=== PATIENT | female | born 1980 | race Caucasian/White ===

== ENCOUNTER 2019-01-01 22:30 | Emergency (ER) | payer MEDICAID ==
[~2019-01-01] VITALS: Ht 157.5 cm; Wt 53.0 kg
[~2019-01-01 22:30] MED LIST: METO-292 PO; NITR100C6 PO; PREN1TAB75 PO
[2019-01-01 22:42] VITALS: BP 114/57
[2019-01-01] MEDS ORDERED: AMOX-419 PO (23:11)
== END 2019-01-01 23:28 | disposition home or self-care (01) ==
LOC: ER 22:30
DX: H72.91 Unspecified perforation of tympanic membrane, right ear (principal); Z79.899 Other long term (current) drug therapy
CPT/HCPCS: 99283

== ENCOUNTER 2019-07-01 14:19 | Emergency (ER) | payer MEDICAID ==
[~2019-07-01] VITALS: Ht 157.5 cm; Wt 56.8 kg
[2019-07-01 14:42] VITALS: BP 117/75
[2019-07-01] MEDS ORDERED: AMOX-117 PO (14:56)
[2019-07-01] MEDS ORDERED: HYDR-3965 PO (14:56)
== END 2019-07-01 15:08 | disposition home or self-care (01) ==
LOC: ER 14:19
DX: H66.92 Otitis media, unspecified, left ear (principal); Z79.899 Other long term (current) drug therapy
CPT/HCPCS: 99283

== ENCOUNTER 2019-07-02 23:53 | Emergency (ER) | payer MEDICAID ==
[~2019-07-02] VITALS: Ht 157.5 cm; Wt 56.8 kg
[~2019-07-02 23:53] MED LIST changes: +AMOX-117 PO; +HYDR-3965 PO
[2019-07-02 23:58] VITALS: BP 129/86
[2019-07-03] MEDS ORDERED: CIPR7.5D LEFT EAR (02:14)
[2019-07-03] MEDS ORDERED: CefTRIAXone 1000mg IM Kit (w/lidocaine diluent) IM ONE (02:15)
[2019-07-03] MEDS ORDERED: ketorolac trometh inj. 60 MG/2 ML VIAL IM ONE (02:15)
== END 2019-07-03 02:40 | disposition home or self-care (01) ==
LOC: ER 23:54
DX: H83.02 Labyrinthitis, left ear (principal); H60.92 Unspecified otitis externa, left ear; Z79.2 Long term (current) use of antibiotics; Z79.899 Other long term (current) drug therapy
CPT/HCPCS: 96372; 99284; J0696; J1885

== ENCOUNTER 2021-03-02 02:20 | Emergency (ER) | payer MEDICAID ==
[~2021-03-02] VITALS: Ht 157.5 cm; Wt 54.5 kg
[~2021-03-02 02:20] MED LIST changes: -AMOX-117 PO; +CIPR7.5D LEFT EAR; -HYDR-3965 PO
[2021-03-02 03:51] VITALS: BP 135/87
== END 2021-03-02 03:53 | disposition home or self-care (01) ==
LOC: ER 02:20
DX: J02.9 Acute pharyngitis, unspecified (principal); R09.89 Other specified symptoms and signs involving the circulatory and respiratory systems; R09.81 Nasal congestion; Z20.822 Contact with and (suspected) exposure to COVID-19
CPT/HCPCS: 87635; 99283; C9803

== ENCOUNTER 2024-07-08 15:37 | Emergency (ER) | payer MEDICAID ==
[~2024-07-08] VITALS: Ht 157.5 cm; Wt 58.9 kg
[2024-07-08] MEDS: LIDOcaine 1% 30ml preserv. free vial SQ STA (17:19)
[2024-07-08 17:45] VITALS: BP 126/82; PULSE 65; RESP 16; TEMP 98.2; O2SAT 99
== END 2024-07-08 17:56 | disposition home or self-care (01) ==
LOC: ER 15:38
DX: S61.012A Laceration without foreign body of left thumb without damage to nail, initial encounter (principal); X58.XXXA Exposure to other specified factors, initial encounter; Y93.89 Activity, other specified; Y92.89 Other specified places as the place of occurrence of the external cause; Y99.8 Other external cause status
CPT/HCPCS: 12001; 99282; A6258

== ENCOUNTER 2025-01-05 20:55 | Emergency (ER) | payer MEDICAID ==
[~2025-01-05] VITALS: Ht 157.5 cm; Wt 48.9 kg
[~2025-01-05 20:55] MED LIST changes: +CIPR7.5D7 OT
[2025-01-05 21:07] VITALS: BP 132/69; PULSE 90; RESP 15; TEMP 98.6; O2SAT 98
--- NOTE | 2025-01-05 21:20 | Physician Documentation ---
History of Present Illness Stated Complaint: DOG BITE Time Seen by MD: 21:13 Primary Medical Doctor: [facility] HPI Ref[age] year old female presents to the emergency department for evaluation of dog bite sustained after breaking a dog fight up between 2 dogs that she does not know. Sustained dog bites to the left index finger finger and left forearm. Bleeding is controlled. Patient reports being up-to-date on her tetanus. Medication Reconciliation Allergies: Coded Allergies: No Known Allergies (Unverified , 07/08/24) Scheduled Amox Tr/Potassium Clavulanate 875/125 MG (Augmentin 875/125 MG), 1 TAB PO Q12H Ciprofloxacin HCl/Dexameth (Ciprodex Otic Suspension), 4 DROP LEFT EAR BID Ciprofloxacin HCl/Dexameth (Ciproflox-Dexameth Otic Susp), 4 DROP OT TID Metoclopramide HCl (Reglan), 1 TAB PO Q8H Nitrofurantoin Monohyd/M-Cryst (Macrobid 100 mg Capsule), 1 CAP PO Q12H Pnv95/Ferrous Fumarate/FA ( Tablet), 1 TABLET PO DAILY Past Medical History Past Medical History: No Pertinent History Past Surgical History: noncontributory Alcohol Use: None Drug Use: none Lives with: Family Lives In: Home Occupation: employed Review of Systems ROS As stated above in the HPI, otherwise all systems are reviewed and negative. Physical Exam Physical Exam VITALS: Reviewed and as above. GENERAL: Alert, no apparent distress. HEENT: Normocephalic, atraumatic, PERRL, EOMI, dry mucosa, no erythema RESPIRATORY: Lungs clear, normal breath sounds, no respiratory distress. CHEST: No accessory muscle use, no retractions CV: Regular rate, rhythm, no edema, no murmur, No: JVD GI: Soft, non-tender, bowels sounds present, no rebound, guarding, or rigidity BACK: No CVA tenderness, or swelling MUSCULOSKELETAL No deformities, edema to the left middle finger. SKIN: Warm and dry, has swelling and puncture mendenhall to the 2nd digit on the left hand into the forearm. NEURO: Oriented x4, No motor or sensory deficit PSYCH: Normal mood and affect, no agitation Medical Decision Making Findings Wound inspected under direct bright light with good visualization. Patient is secondary to dog bite to the 2nd digit of the left hand and forearm. No overt foreign body. Area hemostatic. Neurovascular exam congruent with above. Area extensively irrigated with sterile normal saline under pressure. Repair not indicated at this. Cautious return precautions discussed w/ full understanding. Wound care discussed. Antibiotics prescribed. Patient will follow up with primary care provider for wound check in 2 days. Patient will return to the emergency department with any worsening or recurrent symptoms or any additional concerning symptoms that we discussed here today i.e. increased swelling increased redness fevers any other concerning symptoms. Departure Disposition: HOME / SELF CARE / HOMELESS Impression: Primary Impression: Dog bite Additional Impressions: Swelling Laceration Condition: Stable Discharge Instructions: Animal Bite, Adult, [id number] Referrals: NO PRIMARY CARE PROVIDER (PCP) Prescriptions Amox Tr/Potassium Clavulanate 875/125 MG (Augmentin 875/125 MG) 875 Mg-125 Mg Tablet 1 TAB PO Q12H for 10 Days, #20 TAB Prov: BRITNEY LAWRENCE 01/05/25 Education Educated: Patient Educated regarding: diagnosis, treatment, need for follow up Signature Scribe Signature: A Attestation: Scribed for Britney Lawrence by BLOSSOM Kemp . 01/05/25 21:24 BRITNEY LAWRENCE Jan 05, 2025 21:20
[2025-01-05] MEDS ORDERED: AMOX-580 PO (21:23)
== END 2025-01-05 21:48 | disposition home or self-care (01) ==
LOC: ER 20:55
DX: S61.211A Laceration without foreign body of left index finger without damage to nail, initial encounter (principal); S51.812A Laceration without foreign body of left forearm, initial encounter; W54.0XXA Bitten by dog, initial encounter; Y93.89 Activity, other specified; Y92.89 Other specified places as the place of occurrence of the external cause; Y99.8 Other external cause status
CPT/HCPCS: 99283

== ENCOUNTER 2025-01-06 15:02 | Emergency (ER) | payer MEDICAID ==
[~2025-01-06] VITALS: Ht 157.5 cm; Wt 56.8 kg
[~2025-01-06 15:02] MED LIST changes: +AMOX-580 PO
[2025-01-06 15:32] VITALS: TEMP 98.3
--- NOTE | 2025-01-06 17:18 | RADIOLOGY REPORT ---
EXAM: DI ANKLE, COMPLETE(3VW MIN) INDICATION: ANKLE PAIN TECHNIQUE: 3 views of the right ankle COMPARISON: None FINDINGS/IMPRESSION: No radiographic evidence of an acute osseous abnormality. There is no acute fracture, osseous malalig nment, or aggressive focal osseous lesion. [id number] lateral malleolar soft tissue swelling. No ankle joint effusion.
[2025-01-06] MEDS: amox tr/potassium clavulanate 875/125mg TAB PO ONE (18:17)
--- NOTE | 2025-01-06 18:30 | Physician Documentation ---
History of Present Illness ~ Chief Complaint: Wound Stated Complaint: BODY SWELLING Time Seen by MD: 17:11 Primary Medical Doctor: [facility] Source: patient Mode of Arrival: POV Exam Limitations: no limitations HPI 44-year-old female who is here due to left middle finger pain and swelling as well as right ankle pain after breaking up a fight between her pit bull and [place]. She states that her pit bull and [place] have to be kept separate as if they get together they will fight. She states yesterday they ended up getting in the same location and her pit bull had her 13-year-old [place] by the neck and had twisted the dogs head to the point that she states his head was pointing backwards. They were fighting underneath her trailer and patient reports she jumped underneath her trailer with her daughter trying to separate them she was holding onto her pit bull and her daughter had the [place]. Another family member ended up having to get a hose to spray water on the pit bull to get him to let go of the [place]. Patient reports it all happened very quickly but went on for about 20 minutes. She does not recall exactly how she injured her ankle but states that her ankle is causing her a lot of pain and she has a hard time bearing weight due to the pain. She was seen here yesterday but states she did not notice her ankle pain as much last night and thus did not have it looked at. She wanted to come in today for x-rays to make sure nothing was broken. She also reports the dog bite to her middle finger was treated with antibiotics but she never picked up the antibiotics. She is hoping she can get a dosage of antibiotics here as the pain has increased. Tetanus within 5 years?: Yes Medication Reconciliation Allergies: Coded Allergies: No Known Allergies (Unverified , 01/06/25) Scheduled Amox Tr/Potassium Clavulanate 875/125 MG (Augmentin 875/125 MG), 1 TAB PO Q12H Ciprofloxacin HCl/Dexameth (Ciprodex Otic Suspension), 4 DROP LEFT EAR BID Ciprofloxacin HCl/Dexameth (Ciproflox-Dexameth Otic Susp), 4 DROP OT TID Metoclopramide HCl (Reglan), 1 TAB PO Q8H Nitrofurantoin Monohyd/M-Cryst (Macrobid 100 mg Capsule), 1 CAP PO Q12H Pnv95/Ferrous Fumarate/FA ( Tablet), 1 TABLET PO DAILY Past Medical History Past Medical History: No Pertinent History Past Surgical History: noncontributory Alcohol Use: None Drug Use: none Lives with: Family Lives In: Home Occupation: employed Review of Systems All Other Systems at this time: Reviewed and Negative Physical Exam Vital Signs: Temperature: 98.3, Source: Oral, Heart Rate: 82, Respiratory Rate: 18, BP: 109/67, Pulse Oximetry: 98, Weight: 56.820 Physical Exam General Appearance: Alert, WD/WN. NAD. HEENT: NCAT, PERRL, EOMI. Neck: Supple, trachea midline. Cardiovascular: RRR. No m/r/g. Lungs: CTAB. Breathing unlabored Extremities: Left middle finger to puncture holes at the distal aspect of the finger on the palmar surface area is edematous and ttp, no erythema. arom of finger full. Right ankle ttp over lateral malleolus with ecchymosis and edema. No tenderness over the Achilles or medial malleolus. Skin: Warm/dry, normal color Neurological: Alert and oriented x4, normal gait. Psychiatric: Affect congruent with mood. Progress Progress Note walking boot fitted on right ankle Results/Orders Reviewed/noted all lab results: Yes Results/Orders Orders - KASSY ARORA Ankle, Complete(3vw Min) (01/06/25 16:59) General Nursing Order (01/06/25 17:40) Completed Orders - KASSY ARORA Ankle, Complete(3vw Min) (01/06/25 16:59) Amox Tr/Potassium Clavulanate (Augmentin (01/06/25 18:05) Medications Received in ER Medications (Trade) Dose Ordered Sig/Zuhair Route PRN Reason Start Time Stop Time Status Last Admin Dose Admin (Augmentin 875-125mg tablet) 1 tab ONCE ONCE PO 01/06/25 18:05 01/06/25 18:06 DC 01/06/25 18:17 1 TAB Vital Signs 01/06/25 15:32 Temp 98.3 Pulse 82 Resp 18 B/P (MAP) 109/67 Pulse Ox 98 Medical Decision Making Differential Dx:Considerations: Include: Abscess, Cellulitis, Dressing change, Healing wound, Other Additional Comment X-ray of ankle was negative for fracture no sign of cellulitis of the ankle was there is no erythema. Patient's puncture wound on her left finger is concerning that she may be developing an infection but this all happened less than 24 hours ago. Antibiotics sent yesterday but she never picked up. Departure Time of Disposition: 18:30 Disposition: 01 HOME / SELF CARE / HOMELESS Impression: Primary Impression: Dog bite Qualified Codes: W54.0XXA - Bitten by dog, initial encounter Additional Impression: Right ankle sprain Qualified Codes: S93.401A - Sprain of unspecified ligament of right ankle, initial encounter Condition: Stable Discharge Instructions: Animal Bite, Adult, [id number] Additional Instructions: Since she did not fruit picker her antibiotics yesterday we gave you a dosage here but you need to fruit picker the antibiotics 1st thing in the morning and get started on these. Dog bites are very high risk for infection as any puncture wounds or high risk for infection due to how little they bleed in the bacteria getting deep into the skin. If your finger pain worsens you are unable to bend her finger you develop odorous drainage from the wound her any other concerning symptoms return to the ER immediately. Your right ankle pain is consistent with a sprain there was no evidence for fracture on x-ray we treated this with a walking boot and then gradually advance your activity as tolerated Referrals: NO PRIMARY CARE PROVIDER (PCP) Education Educated: Patient Educated regarding: diagnosis, treatment, need for follow up Signature Scribe Signature: x Attestation: KASSY Whipple Jan 06, 2025 18:30
[2025-01-06 18:33] VITALS: BP 118/92; PULSE 97; RESP 18; O2SAT 98
== END 2025-01-06 18:42 | disposition home or self-care (01) ==
LOC: ER 15:03
DX: S93.491A Sprain of other ligament of right ankle, initial encounter (principal); S61.233A Puncture wound without foreign body of left middle finger without damage to nail, initial encounter; Z79.899 Other long term (current) drug therapy; W54.0XXA Bitten by dog, initial encounter; Y93.89 Activity, other specified; Y92.89 Other specified places as the place of occurrence of the external cause; Y99.8 Other external cause status
CPT/HCPCS: 73610; 99283; J7030; L4360